=== PATIENT | female | born 1995 | race Caucasian/White ===

== ENCOUNTER 2021-01-11 16:12 | Emergency (ER) | payer OTHER ==
[2021-01-11 17:14] LABS: BILIRUBIN NEGATIVE (NEGATIVE); BLOOD 1+ Ery/uL (NEGATIVE); CLARITY CLEAR (CLEAR); COLOR YELLOW (YELLOW); GLUCOSE (U) NORMAL (NORMAL); LEUKOCYTES TRACE Leu/uL (NEGATIVE); NITRITE NEGATIVE (NEGATIVE); PROTEIN NEGATIVE (NEGATIVE); UROBILINOGEN 0.2 mg/dL (0.2-1.0)
[2021-01-11 17:24] LABS: AMORPHOUS URATES CRYSTALS TRACE; BACTERIA 2+; MUCOUS TRACE
[2021-01-11 18:02] LABS: BASOPHIL 0.5 % (0-2); HCT 35.8 % (37.0-47.0); HGB 11.8 g/dl (12.5-16.0); MCH 28.3 pg (25.0-31.0); MCV 85.9 fL (78.0-100.0); MONOCYTE 7.4 % (0-12); MPV 9.5 fL (6.0-9.5); NEUTROPHIL 66.6 % (41-80); NRBC 0; PLT 308 K/uL (150-400); RBC 4.17 M/uL (4.20-5.40); RDW 12.3 % (11.5-14.0); WBC 9.4 K/uL (4.0-10.5)
[2021-01-11 18:34] LABS: ALBUMIN 3.8 g/dL (3.4-5.0); BILIRUBIN - TOTAL 0.2 mg/dL (0.2-1.0); BUN/CREAT RATIO (CALC) 13.5 RATIO; CREATININE 0.74 mg/dL (0.51-0.95); GLOBULIN (CALCULATION) 3.7 g/dL; POTASSIUM 3.7 mmol/L (3.5-5.1); TOTAL PROTEIN 7.5 g/dL (6.4-8.2)
== END 2021-01-11 19:04 | disposition home or self-care (01) ==
LOC: FER 16:12
PROVIDERS: Emergency Medicine
DX: O20.0 Threatened abortion (principal); Z3A.01 Less than 8 weeks gestation of pregnancy; Z88.8 Allergy status to other drugs, medicaments and biological substances
CPT/HCPCS: 36415; 76801; 80053; 81001; 84702; 85025; 86900; 86901

== ENCOUNTER 2021-02-10 17:11 | Emergency (ER) | payer OTHER ==
[2021-02-10 21:10] LABS: BASOPHIL 0.2 % (0-2); EOSINOPHIL 0.3 % (0-5); HCT 38.3 % (37.0-47.0); HGB 12.7 g/dl (12.5-16.0); LYMPHOCYTE 12.3 % (15-48); MCH 28.3 pg (25.0-31.0); MCHC 33.2 g/dL (32.0-36.0); MCV 85.3 fL (78.0-100.0); MONOCYTE 5.2 % (0-12); MPV 9.4 fL (6.0-9.5); NEUTROPHIL 81.4 % (41-80); NRBC 0; PLT 295 K/uL (150-400); RBC 4.49 M/uL (4.20-5.40); RDW 12.5 % (11.5-14.0)
[2021-02-10 21:18] LABS: BILIRUBIN NEGATIVE (NEGATIVE); BLOOD NEGATIVE Ery/uL (NEGATIVE); CLARITY CLEAR (CLEAR); COLOR YELLOW (YELLOW); GLUCOSE (U) NORMAL (NORMAL); LEUKOCYTES NEGATIVE Leu/uL (NEGATIVE); NITRITE NEGATIVE (NEGATIVE); PROTEIN NEGATIVE (NEGATIVE)
[2021-02-10 21:29] LABS: ALBUMIN 3.9 g/dL (3.4-5.0); BILIRUBIN - TOTAL 0.3 mg/dL (0.2-1.0); BUN/CREAT RATIO (CALC) 16.7 RATIO; CREATININE 0.72 mg/dL (0.51-0.95); GLOBULIN (CALCULATION) 4.1 g/dL; POTASSIUM 4.1 mmol/L (3.5-5.1)
[2021-02-11] MEDS ORDERED: ONDANSETRON ODT4 MG SL (00:15)
== END 2021-02-11 00:25 | disposition home or self-care (01) ==
LOC: FER 17:11
PROVIDERS: Emergency Medicine Emergency Medical Services
DX: O99.891 Other specified diseases and conditions complicating pregnancy (principal); R10.84 Generalized abdominal pain; R19.7 Diarrhea, unspecified; O21.9 Vomiting of pregnancy, unspecified; O26.611 Liver and biliary tract disorders in pregnancy, first trimester; K80.20 Calculus of gallbladder without cholecystitis without obstruction; Z3A.11 11 weeks gestation of pregnancy
CPT/HCPCS: 36415; 71045; 80053; 81003; 83690; 84484; 85025; 93005; J1885; J2405; J7120